=== PATIENT | male | born 1980 | race Caucasian/White ===

== ENCOUNTER 2022-07-21 04:25 | Emergency (ER) | payer OTHER ==
[~2022-07-21] VITALS: Ht 165.1 cm; Wt 94.3 kg
[2022-07-21] MEDS ORDERED: P50 MT (06:54)
[2022-07-21] MEDS ORDERED: GABA300C MT (06:54)
[2022-07-21] MEDS ORDERED: ACYC200C31 MT (06:54)
[2022-07-21] MEDS ORDERED: POLY15DR31 EACHEYE (06:54)
[2022-07-21 07:00] VITALS: BP 133/67
== END 2022-07-21 07:02 | disposition home or self-care (01) ==
LOC: ER 04:25 → EDSEX 04:25 → ER 07:02
DX: G51.0 Bell's palsy (principal); R51.9 Headache, unspecified
CPT/HCPCS: 99284